=== PATIENT | male | born 1955 | race African-American/Black ===

== ENCOUNTER 2018-01-28 06:44 | Emergency (ER) | payer MEDICAID ==
[~2018-01-28] VITALS: Ht 190.5 cm; Wt 75.0 kg
[2018-01-28] MEDS ORDERED: MORPHINE SULFATE 4 MG/ML CPJ (NOT FOR IM USE) IV STA (07:20)
[2018-01-28] MEDS ORDERED: SODIUM CHLORIDE 0.9% 1,000 ML IV ONE (07:20)
[2018-01-28] MEDS ORDERED: ONDANSETRON HCL 4MG/2ML VIAL IV STA (07:20)
[2018-01-28 07:43] LABS: BASOPHILS % 0.5 % (0.0-2.0); CHLORIDE 103 mEq/L (98-107); HEMATOCRIT. 38.2 % (42.0-52.0); HEMOGLOBIN. 12.8 g/dL (14.0-18.0); LYMPHOCYTES % 19.2 % (20.0-50.0); MEAN CORPUSCULAR HEMOGLOBIN 33.6 pg (28.0-32.0); MEAN CORPUSCULAR VOLUME 100.2 fL (80.0-94.0); MEAN PLATELET VOLUME 7.4 fl (7.4-10.4); MONOCYTES % 8.7 % (2.0-8.0); NEUTROPHILS % 70.6 % (40.0-76.0); PLATELET 154 x1000/uL (130-400); RED BLOOD CELL COUNT 3.81 mill/uL (4.7-6.1); RED CELL DISTRIBUTION WIDTH 14.1 % (11.6-14.6)
[2018-01-28 07:49] LABS: PARTIAL THROMBOPLASTIN TIME 26.1 sec (23.4-31.0)
[2018-01-28 09:56] VITALS: BP 153/77
== END 2018-01-28 10:19 | disposition home or self-care (01) ==
LOC: ER 06:44
DX: S70.01XA Contusion of right hip, initial encounter (principal); I10 Essential (primary) hypertension; W19.XXXA Unspecified fall, initial encounter; Y93.89 Activity, other specified; Y92.89 Other specified places as the place of occurrence of the external cause; Y99.8 Other external cause status
CPT/HCPCS: 36415; 71045; 72192; 73502; 80048; 85025; 85610; 85730; 96374; 96375; 99285; J2270; J2405; J7030; Z7610; 96361

== ENCOUNTER 2019-05-19 17:31 | Emergency (ER) | payer MEDICAID ==
[~2019-05-19] VITALS: Ht 188 cm; Wt 77.0 kg
[2019-05-19] MEDS ORDERED: BACITRACIN ZINC OINT UDPKT TOP ONE (20:00)
[2019-05-19] MEDS ORDERED: TETANUS, DIPHTHERIA, PERTUSSIS VAC/PF 0.5ML (>7YR OLD) IM ONE (20:00)
[2019-05-19] MEDS ORDERED: LIDOCAINE HCL/PF 1% 10 MG/ML 5ML VIAL IJ ONE (20:00)
[2019-05-19] MEDS ORDERED: BACITRACIN 15GM TUBE TOP SCH (21:15)
[2019-05-19 21:26] VITALS: BP 110/67
== END 2019-05-19 21:27 | disposition home or self-care (01) ==
LOC: ER 17:31
DX: S01.81XA Laceration without foreign body of other part of head, initial encounter (principal); W01.0XXA Fall on same level from slipping, tripping and stumbling without subsequent striking against object, initial encounter; Y93.89 Activity, other specified; Y92.9 Unspecified place or not applicable
CPT/HCPCS: 12011; 99283

== ENCOUNTER 2019-06-04 12:36 | Emergency (ER) | payer MEDICAID ==
[~2019-06-04] VITALS: Ht 175.3 cm; Wt 71.0 kg
[2019-06-04] MEDS ORDERED: HYDROCODONE/ACETAMINOPHEN 5/325MG TABLET PO ONE (15:45)
[2019-06-04 16:07] VITALS: BP 136/80
== END 2019-06-04 17:46 | disposition home or self-care (01) ==
LOC: ER 12:36
DX: G89.29 Other chronic pain (principal); M54.5 Low back pain; I10 Essential (primary) hypertension
CPT/HCPCS: 99284

== ENCOUNTER 2019-07-29 07:10 | Emergency (ER) | payer MEDICAID ==
[~2019-07-29] VITALS: Ht 175.3 cm; Wt 68.0 kg
[2019-07-29] MEDS ORDERED: KETOROLAC 60MG/2ML VIAL IM ONE (08:30)
[2019-07-29] MEDS ORDERED: HYDROCODONE/ACETAMINOPHEN 5/325MG TABLET PO ONE (09:45)
[2019-07-29 14:20] VITALS: BP 158/73
== END 2019-07-29 14:24 | disposition home or self-care (01) ==
LOC: ER 07:25
DX: S22.41XA Multiple fractures of ribs, right side, initial encounter for closed fracture (principal); W01.0XXA Fall on same level from slipping, tripping and stumbling without subsequent striking against object, initial encounter; Y92.89 Other specified places as the place of occurrence of the external cause; Y99.8 Other external cause status; I10 Essential (primary) hypertension; M25.512 Pain in left shoulder; Y93.01 Activity, walking, marching and hiking
CPT/HCPCS: 71100; 73030; 96372; 99283; J1885

== ENCOUNTER 2019-09-20 09:56 | Emergency (ER) | payer MEDICAID ==
[~2019-09-20] VITALS: Ht 177.8 cm; Wt 85.0 kg
[2019-09-20] MEDS ORDERED: MORPHINE SULFATE 4 MG/ML CPJ (NOT FOR IM USE) IV STA (21:26)
[2019-09-20] MEDS ORDERED: SODIUM CHLORIDE 0.9% 1,000 ML IV ONE (21:26)
[2019-09-20 21:41] LABS: BASOPHILS % 0.6 % (0.0-2.0); EOSINOPHILS % 0.9 % (0.0-5.0); HEMATOCRIT. 33.7 % (42.0-52.0); HEMOGLOBIN. 11.4 g/dL (14.0-18.0); LYMPHOCYTES % 12.2 % (20.0-50.0); MEAN CORPUSCULAR HEMOGLOBIN 33.9 pg (28.0-32.0); MEAN CORPUSCULAR VOLUME 100.6 fL (80.0-94.0); MEAN PLATELET VOLUME 8.1 fl (7.4-10.4); NEUTROPHILS % 80.3 % (40.0-76.0); PLATELET 220 x1000/uL (130-400); RED BLOOD CELL COUNT 3.35 mill/uL (4.7-6.1); RED CELL DISTRIBUTION WIDTH 16.3 % (11.6-14.6)
[2019-09-20 21:43] LABS: CHLORIDE 105 mEq/L (98-107)
[2019-09-20] MEDS ORDERED: DEXTROSE 50% WATER 50ML SYRINGE IV ONE (23:45)
[2019-09-21] MEDS ORDERED: MORPHINE SULFATE 4 MG/ML CPJ (NOT FOR IM USE) IV ONE (02:15)
[2019-09-21 03:00] VITALS: BP 146/70
== END 2019-09-21 04:00 | disposition short-term general hospital (02) ==
LOC: ER 09:56 → CANBEDREQ 09-21 07:15
DX: S72.001A Fracture of unspecified part of neck of right femur, initial encounter for closed fracture (principal); I10 Essential (primary) hypertension; W18.30XA Fall on same level, unspecified, initial encounter; Y93.01 Activity, walking, marching and hiking; Y92.488 Other paved roadways as the place of occurrence of the external cause; Y99.8 Other external cause status
CPT/HCPCS: 36415; 71045; 73502; 80053; 82962; 83880; 84484; 85025; 93005; 96374; 96375; 99285; J2270; J7030

== ENCOUNTER 2021-07-31 16:08 | Emergency (ER) | payer MEDICAID ==
[~2021-07-31] VITALS: Ht 177.8 cm; Wt 75.0 kg
[2021-07-31] MEDS ORDERED: SODIUM CHLORIDE 0.9% 500 ML IV ONE (17:15)
[2021-07-31 19:19] LABS: EOSINOPHILS % 4.8 % (0.0-5.0); HEMATOCRIT. 38.5 % (42.0-52.0); HEMOGLOBIN. 12.6 g/dL (14.0-18.0); LYMPHOCYTES % 26.5 % (20.0-50.0); MEAN CORPUSCULAR HEMOGLOBIN 34.1 pg (28.0-32.0); MEAN CORPUSCULAR VOLUME 104.1 fL (80.0-94.0); MEAN PLATELET VOLUME 7.6 fl (7.4-10.4); MONOCYTES % 7.9 % (2.0-8.0); NEUTROPHILS % 59.8 % (40.0-76.0); PLATELET 192 x1000/uL (130-400); RED CELL DISTRIBUTION WIDTH 17.6 % (11.6-14.6)
[2021-07-31 19:24] LABS: CHLORIDE 107 mEq/L (98-107)
[2021-07-31 19:29] LABS: ETHANOL BLOOD 243 mg/dL
[2021-07-31] MEDS ORDERED: ACETAMINOPHEN 325MG TABLET PO ONE (19:30)
[2021-07-31 20:33] LABS: CLARITY URINE CLEAR (CLEAR); COLOR URINE YELLOW (YELLOW); KETONES URINE NEGATIVE (NEGATIVE); LEUKOCYTE ESTERASE URINE NEGATIVE (NEGATIVE); NITRITE URINE NEGATIVE (NEGATIVE); OCCULT BLOOD URINE 1+ (NEGATIVE); PROTEIN URINE NEGATIVE (NEGATIVE); SPECIFIC GRAVITY URINE 1.013 (1.005-1.030); UROBILINOGEN URINE 0.2 E.U./dL (0.2-1.0)
[2021-07-31 20:42] LABS: *AMPHETAMINES SCREEN URINE NEGATIVE (NEGATIVE); *BARBITURATES SCREEN URINE NEGATIVE (NEGATIVE)
[2021-07-31 20:43] LABS: *BENZODIAZEPINES SCREEN URINE NEGATIVE (NEGATIVE); *COCAINE SCREEN URINE NEGATIVE (NEGATIVE); METHADONE URINE SCREEN NEGATIVE (NEGATIVE); OPIATES URINE SCREEN NEGATIVE (NEGATIVE); PHENCYCLIDINE URINE SCREEN NEGATIVE (NEGATIVE)
[2021-07-31 20:44] LABS: CANNABINOID URINE SCREEN PRESUMTIVE POSITIVE (NEGATIVE)
[2021-08-01 03:05] VITALS: BP 110/60
== END 2021-08-01 03:10 | disposition home or self-care (01) ==
LOC: ER 16:08
DX: S00.81XA Abrasion of other part of head, initial encounter (principal); F10.129 Alcohol abuse with intoxication, unspecified; R41.82 Altered mental status, unspecified; I49.9 Cardiac arrhythmia, unspecified; F03.90 Unspecified dementia, unspecified severity, without behavioral disturbance, psychotic disturbance, mood disturbance, and anxiety; F41.9 Anxiety disorder, unspecified; M19.90 Unspecified osteoarthritis, unspecified site; I12.9 Hypertensive chronic kidney disease with stage 1 through stage 4 chronic kidney disease, or unspecified chronic kidney disease; N18.9 Chronic kidney disease, unspecified; Y90.8 Blood alcohol level of 240 mg/100 ml or more; V43.52XA Car driver injured in collision with other type car in traffic accident, initial encounter; Y92.488 Other paved roadways as the place of occurrence of the external cause; Y93.89 Activity, other specified; Z87.440 Personal history of urinary (tract) infections; Z98.890 Other specified postprocedural states
CPT/HCPCS: 36415; 70450; 70486; 71045; 72040; 72070; 72100; 72170; 72192; 80053; 80305; 80320; 81003; 83880; 84484; 85025; 93005; 99285; J7040; G0480

== ENCOUNTER 2022-03-21 11:46 | Inpatient (IN) | payer MEDICARE, MEDICAID ==
[~2022-03-21] VITALS: Ht 193 cm; Wt 66.2 kg
[2022-03-21] MEDS ORDERED: SODIUM CHLORIDE 0.9% 1,000 ML IV ONE ×2 (12:15→13:15)
[2022-03-21 12:41] LABS: HEMATOCRIT. 45.9 % (42.0-52.0); HEMOGLOBIN. 14.9 g/dL (14.0-18.0); MEAN CORPUSCULAR HEMOGLOBIN 33.5 pg (28.0-32.0); MEAN PLATELET VOLUME 9.2 fl (7.4-10.4); PLATELET 255 x1000/uL (130-400); RED BLOOD CELL COUNT 4.46 mill/uL (4.7-6.1); RED CELL DISTRIBUTION WIDTH 17.7 % (11.6-14.6)
[2022-03-21 13:07] LABS: ETHANOL BLOOD < 10 mg/dL
[2022-03-21] MEDS ORDERED: PIPERACILLIN/TAZOBACTAM 3.375GM/50ML PREMIX IV STA (13:11)
[2022-03-21] MEDS ORDERED: VANCOMYCIN 1GM PMX (XELLIA) 200 ML IV STA (13:11)
[2022-03-21] MEDS ORDERED: VANCOMYCIN 1G PREMIX 200 ML IV NR (13:30)
[2022-03-21] MEDS ORDERED: ASPIRIN 325MG TABLET PO ONE (13:30)
[2022-03-21] MEDS ORDERED: PIPERACILLIN/TAZ 3.375G PREMIX 50 ML IV NR (13:30)
[2022-03-21 14:01] LABS: PLATELET ESTIMATE NORMAL
[2022-03-21 14:20] LABS: CHLORIDE 100 mEq/L (98-107)
[2022-03-21 14:22] LABS: INR 1.1; PROTHROMBIN TIME 11.8 sec (9.6-11.0)
[2022-03-21] MEDS ORDERED: HEPARIN 5000 UNITS/ML VIAL IV ONE (15:00)
[2022-03-21] MEDS ORDERED: HEPARIN 25,000 UNITS PREMIX 250 ML IV ONE (15:00)
[2022-03-21] MEDS ORDERED: ENOXAPARIN 60MG/0.6ML SYR SUBCUT SCH (16:00)
[2022-03-21 20:00] VITALS: BP 98/76
[2022-03-21 22:00] VITALS: BP 96/56
[2022-03-21 22:42] LABS: BG BASE EXCESS -9.3 mmol/L (-2.0-2.0); BG FRACTION INSPIRED OXYGEN 21; BG HCO3 ACT 12.6 mmol/L (22.0-26.0); BG METHEMOGLOBIN 0.4 % (0.0-1.5); BG OXYHEMOGLOBIN 96.6 % (94.0-97.0); BG PCO2 19.7 mmHg (35.0-45.0); BG PH 7.423 (7.350-7.450); BG PO2 97.4 mmHg (75.0-100.0); BG TOTAL HEMOGLOBIN 14.2 g/dL (12.0-18.0); BG VENT MODE ROOM AIR
[2022-03-21 23:00] VITALS: BP_SYST 88; BP_SYST 92; BP_DIAS 53; BP_DIAS 56
[2022-03-21] MEDS ORDERED: MORPHINE SULFATE 2 MG/ML CPJ (NOT FOR IM USE) IV PRN (23:30)
[2022-03-21] MEDS ORDERED: ACETAMINOPHEN 325MG TABLET PO PRN (23:30)
[2022-03-21 23:50] VITALS: BP 91/55
[2022-03-21] MEDS ORDERED: SODIUM BICARBONATE 8.4% 1 MEQ/ML 50ML SYR IV NR (23:57)
[2022-03-22] VITALS (14 sets, daily range): BP systolic 91–123; BP diastolic 51–86
[2022-03-22] MEDS: DEXT 5%/0.9% NACL 1,000 ML IV SCH ×3 (02:52→21:55)
[2022-03-22 07:04] LABS: HEMOGLOBIN. 13.6 g/dL (14.0-18.0); MEAN CORPUSCULAR HEMOGLOBIN 33.9 pg (28.0-32.0); MEAN CORPUSCULAR VOLUME 102.4 fL (80.0-94.0); MEAN PLATELET VOLUME 9.4 fl (7.4-10.4); PLATELET 210 x1000/uL (130-400); RED BLOOD CELL COUNT 4.01 mill/uL (4.7-6.1); RED CELL DISTRIBUTION WIDTH 17.8 % (11.6-14.6)
[2022-03-22] MEDS ORDERED: VANCOMYCIN 500MG PREMIX 100 ML IV SCH (09:00)
[2022-03-22] MEDS: CITRIC ACID/SODIUM CITRATE SOLN 15ML UDC PO SCH ×3 (09:44→17:00)
[2022-03-22] MEDS: PIPERACILLIN/TAZOBACTAM 3.375 G in DEXTROSE 5% WATER 50 ML IV SCH ×2 (09:44→21:55)
[2022-03-22] MEDS ORDERED: NALOXONE HCL 0.4MG/ML VIAL IV PRN (10:00)
[2022-03-22 13:10] LABS: CREATINE KINASE 10963 IU/L (39-308)
[2022-03-22 14:44] LABS: NUCLEATED RED BLOOD CELLS 1 /100 WBC; PLATELET ESTIMATE NORMAL
[2022-03-22 15:57] LABS: CLARITY URINE TURBID (CLEAR); COLOR URINE DARK YELLOW (YELLOW); KETONES URINE TRACE (NEGATIVE); LEUKOCYTE ESTERASE URINE 2+ (NEGATIVE); NITRITE URINE POSITIVE (NEGATIVE); OCCULT BLOOD URINE 3+ (NEGATIVE); PROTEIN URINE 3+ (NEGATIVE); SPECIFIC GRAVITY URINE 1.024 (1.005-1.030)
[2022-03-22] MEDS: ENOXAPARIN 30MG/0.3ML SYR SUBCUT SCH (16:00)
[2022-03-22 16:31] LABS: *AMPHETAMINES SCREEN URINE NEGATIVE (NEGATIVE); *BARBITURATES SCREEN URINE NEGATIVE (NEGATIVE); *BENZODIAZEPINES SCREEN URINE NEGATIVE (NEGATIVE); *COCAINE SCREEN URINE NEGATIVE (NEGATIVE); CANNABINOID URINE SCREEN NEGATIVE (NEGATIVE); METHADONE URINE SCREEN NEGATIVE (NEGATIVE); OPIATES URINE SCREEN PRESUMTIVE POSITIVE (NEGATIVE); PHENCYCLIDINE URINE SCREEN NEGATIVE (NEGATIVE)
[2022-03-22 17:02] LABS: HEPATITIS B SURFACE ANTIGEN NEGATIVE
[2022-03-23] VITALS (20 sets, daily range): BP systolic 81–110; BP diastolic 25–61
[2022-03-23] MEDS: DEXT 5%/0.9% NACL 1,000 ML IV SCH ×2 (06:00→11:43)
[2022-03-23 06:40] LABS: CHLORIDE 106 mEq/L (98-107)
[2022-03-23] MEDS: LEVOTHYROXINE SODIUM 25MCG TABLET PO SCH (06:46)
[2022-03-23 06:55] LABS: PHOSPHORUS 2.8 mg/dL (2.5-4.9)
[2022-03-23 07:51] LABS: HEMATOCRIT. 35.3 % (42.0-52.0); HEMOGLOBIN. 11.4 g/dL (14.0-18.0); MEAN CORPUSCULAR HEMOGLOBIN 33.5 pg (28.0-32.0); MEAN CORPUSCULAR VOLUME 103.8 fL (80.0-94.0); MEAN PLATELET VOLUME 9.1 fl (7.4-10.4); PLATELET 172 x1000/uL (130-400); RED CELL DISTRIBUTION WIDTH 17.8 % (11.6-14.6)
[2022-03-23] MEDS: CITRIC ACID/SODIUM CITRATE SOLN 15ML UDC PO SCH ×4 (09:00→16:51)
[2022-03-23] MEDS: PIPERACILLIN/TAZOBACTAM 3.375 G in DEXTROSE 5% WATER 50 ML IV SCH ×2 (09:29→21:44)
[2022-03-23] MEDS ORDERED: MIDODRINE HCL 5MG TABLET PO NR (09:30)
[2022-03-23] MEDS ORDERED: VANCOMYCIN 750MG PREMIX 150 ML IV NR (11:00)
[2022-03-23] MEDS: MIDODRINE HCL 5MG TABLET PO SCH ×2 (12:59→16:59)
[2022-03-23 13:00] LABS: PLATELET ESTIMATE NORMAL
[2022-03-23] MEDS: ENOXAPARIN 30MG/0.3ML SYR SUBCUT SCH (16:59)
[2022-03-24] VITALS (19 sets, daily range): BP systolic 86–157; BP diastolic 47–121
[2022-03-24] MEDS: DEXT 5%/0.9% NACL 1,000 ML IV SCH ×3 (02:00→21:44)
[2022-03-24 05:41] LABS: HEMOGLOBIN. 10.7 g/dL (14.0-18.0); MEAN CORPUSCULAR HEMOGLOBIN 33.7 pg (28.0-32.0); MEAN CORPUSCULAR VOLUME 101.3 fL (80.0-94.0); MEAN PLATELET VOLUME 8.9 fl (7.4-10.4); PLATELET 156 x1000/uL (130-400); RED BLOOD CELL COUNT 3.16 mill/uL (4.7-6.1); RED CELL DISTRIBUTION WIDTH 17.7 % (11.6-14.6)
[2022-03-24 06:48] LABS: PLATELET ESTIMATE NORMAL
[2022-03-24] MEDS: LEVOTHYROXINE SODIUM 25MCG TABLET PO SCH (06:59)
[2022-03-24] MEDS ORDERED: POTASSIUM CHLORIDE 20MEQ TABLET SR PO NR (08:45)
[2022-03-24] MEDS: PIPERACILLIN/TAZOBACTAM 3.375 G in DEXTROSE 5% WATER 50 ML IV SCH ×2 (10:05→21:44)
[2022-03-24] MEDS: MIDODRINE HCL 5MG TABLET PO SCH ×3 (10:06→18:23)
[2022-03-24] MEDS: FOLIC ACID 1MG TABLET PO SCH (14:00)
[2022-03-24] MEDS: THIAMINE HCL 100MG TABLET PO SCH (14:00)
[2022-03-24] MEDS: ENOXAPARIN 30MG/0.3ML SYR SUBCUT SCH (16:00)
[2022-03-24] MEDS ORDERED: VANCOMYCIN 750MG PREMIX 150 ML IV NR (21:00)
[2022-03-25] VITALS (23 sets, daily range): BP systolic 85–117; BP diastolic 47–69
[2022-03-25] MEDS: LEVOTHYROXINE SODIUM 25MCG TABLET PO SCH (07:09)
[2022-03-25 07:14] LABS: HEMATOCRIT. 31.2 % (42.0-52.0); HEMOGLOBIN. 10.3 g/dL (14.0-18.0); MEAN CORPUSCULAR HEMOGLOBIN 33.4 pg (28.0-32.0); MEAN CORPUSCULAR VOLUME 101.5 fL (80.0-94.0); MEAN PLATELET VOLUME 9.3 fl (7.4-10.4); PLATELET 165 x1000/uL (130-400); RED BLOOD CELL COUNT 3.08 mill/uL (4.7-6.1); RED CELL DISTRIBUTION WIDTH 17.1 % (11.6-14.6)
[2022-03-25 07:52] LABS: PHOSPHORUS 2.9 mg/dL (2.5-4.9)
[2022-03-25] MEDS: PIPERACILLIN/TAZOBACTAM 3.375 G in DEXTROSE 5% WATER 50 ML IV SCH ×2 (08:19→21:04)
[2022-03-25] MEDS: FOLIC ACID 1MG TABLET PO SCH (08:19)
[2022-03-25] MEDS: MIDODRINE HCL 5MG TABLET PO SCH ×3 (08:19→16:45)
[2022-03-25] MEDS: DEXT 5%/0.9% NACL 1,000 ML IV SCH (08:19)
[2022-03-25] MEDS: THIAMINE HCL 100MG TABLET PO SCH (08:19)
[2022-03-25] MEDS ORDERED: POTASSIUM CHLORIDE 20MEQ TABLET SR PO NR (10:00)
[2022-03-25] MEDS: HYDROCODONE/ACETAMINOPHEN 5/325MG TABLET PO PRN ×2 (12:07→21:03)
[2022-03-25 13:45] LABS: PLATELET ESTIMATE NORMAL
[2022-03-25 14:32] LABS: BG BASE EXCESS -6.3 mmol/L (-2.0-2.0); BG CARBOXYHEMOGLOBIN 0.3 % (0.5-1.5); BG DEOXYHEMOGLOBIN 1.6 % (0.0-5.0); BG FRACTION INSPIRED OXYGEN 26; BG HCO3 ACT 18.1 mmol/L (22.0-26.0); BG METHEMOGLOBIN 0.5 % (0.0-1.5); BG OXYGEN SATURATION 98.4 % (92.0-98.5); BG OXYHEMOGLOBIN 97.6 % (94.0-97.0); BG PO2 146.2 mmHg (75.0-100.0); BG SAMPLE SITE RIGHT BRACHIAL; BG TOTAL HEMOGLOBIN 11.2 g/dL (12.0-18.0); BG VENT MODE NASAL CANNULA
[2022-03-25] MEDS ORDERED: SODIUM BICARBONATE 100 MEQ in DEXT 5%/0.45% NACL 1000ML 1,000 ML IV SCH (16:00)
[2022-03-25] MEDS: ENOXAPARIN 30MG/0.3ML SYR SUBCUT SCH (16:45)
[2022-03-25 18:23] LABS: PHOSPHORUS 2.4 mg/dL (2.5-4.9)
[2022-03-26] VITALS (14 sets, daily range): BP systolic 82–125; BP diastolic 51–75
[2022-03-26 06:26] LABS: HEMATOCRIT. 31.8 % (42.0-52.0); HEMOGLOBIN. 10.8 g/dL (14.0-18.0); MEAN CORPUSCULAR HEMOGLOBIN 34.1 pg (28.0-32.0); MEAN CORPUSCULAR VOLUME 100.8 fL (80.0-94.0); PLATELET 196 x1000/uL (130-400); RED BLOOD CELL COUNT 3.15 mill/uL (4.7-6.1); RED CELL DISTRIBUTION WIDTH 17.5 % (11.6-14.6)
[2022-03-26] MEDS: LEVOTHYROXINE SODIUM 25MCG TABLET PO SCH (07:30)
[2022-03-26] MEDS ORDERED: ALBUMIN HUMAN 25GM/100ML (25%) IV ONE (07:45)
[2022-03-26] MEDS ORDERED: VANCOMYCIN 1G PREMIX 200 ML IV NR (08:00)
[2022-03-26] MEDS: MIDODRINE HCL 5MG TABLET PO SCH ×3 (09:00→17:21)
[2022-03-26] MEDS: THIAMINE HCL 100MG TABLET PO SCH (09:00)
[2022-03-26] MEDS: FOLIC ACID 1MG TABLET PO SCH (09:00)
[2022-03-26 09:11] LABS: BG BASE EXCESS -6.2 mmol/L (-2.0-2.0); BG CARBOXYHEMOGLOBIN 0.4 % (0.5-1.5); BG DEOXYHEMOGLOBIN 4.5 % (0.0-5.0); BG FRACTION INSPIRED OXYGEN 21; BG HCO3 ACT 18.7 mmol/L (22.0-26.0); BG METHEMOGLOBIN 0.9 % (0.0-1.5); BG OXYGEN SATURATION 95.4 % (92.0-98.5); BG OXYHEMOGLOBIN 94.2 % (94.0-97.0); BG PCO2 35.1 mmHg (35.0-45.0); BG PH 7.345 (7.350-7.450); BG PO2 85.2 mmHg (75.0-100.0); BG SAMPLE SITE RIGHT RADIAL; BG TOTAL HEMOGLOBIN 12.7 g/dL (12.0-18.0); BG VENT MODE ROOM AIR
[2022-03-26] MEDS: PIPERACILLIN/TAZOBACTAM 3.375 G in DEXTROSE 5% WATER 50 ML IV SCH ×2 (10:26→21:24)
[2022-03-26 10:43] LABS: PLATELET ESTIMATE NORMAL
[2022-03-26] MEDS: SODIUM BICARBONATE 100 MEQ in DEXT 5%/0.45% NACL 1000ML 1,000 ML IV SCH (17:21)
[2022-03-26] MEDS: ENOXAPARIN 30MG/0.3ML SYR SUBCUT SCH (17:21)
[2022-03-27] VITALS (10 sets, daily range): BP systolic 107–140; BP diastolic 57–80
[2022-03-27] MEDS: SODIUM BICARBONATE 100 MEQ in DEXT 5%/0.45% NACL 1000ML 1,000 ML IV SCH ×2 (03:45→15:55)
[2022-03-27] MEDS: FOLIC ACID 1MG TABLET PO SCH (09:06)
[2022-03-27] MEDS: LEVOTHYROXINE SODIUM 25MCG TABLET PO SCH (09:06)
[2022-03-27] MEDS: MIDODRINE HCL 5MG TABLET PO SCH ×3 (09:06→16:53)
[2022-03-27] MEDS: THIAMINE HCL 100MG TABLET PO SCH (09:06)
[2022-03-27] MEDS: LOPERAMIDE HCL 2MG CAPSULE PO PRN ×2 (10:16→15:31)
[2022-03-27] MEDS: PIPERACILLIN/TAZOBACTAM 3.375 G in DEXTROSE 5% WATER 50 ML IV SCH (10:41)
[2022-03-27 11:02] LABS: HEMATOCRIT. 31.3 % (42.0-52.0); HEMOGLOBIN. 10.2 g/dL (14.0-18.0); MEAN CORPUSCULAR HEMOGLOBIN 33.1 pg (28.0-32.0); MEAN CORPUSCULAR VOLUME 101.3 fL (80.0-94.0); MEAN PLATELET VOLUME 8.3 fl (7.4-10.4); PLATELET 270 x1000/uL (130-400); RED BLOOD CELL COUNT 3.09 mill/uL (4.7-6.1); RED CELL DISTRIBUTION WIDTH 17.5 % (11.6-14.6)
[2022-03-27] MEDS ORDERED: SILVER SULFADIAZINE 1% CREAM 25GM TOP SCH (12:00)
[2022-03-27 12:16] LABS: PLATELET ESTIMATE NORMAL
[2022-03-27] MEDS ORDERED: ENOXAPARIN 40MG/0.4ML SYR SUBCUT SCH (16:00)
== END 2022-03-27 17:21 | DRG 871 ==
LOC: ER 11:58 → 5EST 14:56 → EDBEDREQ 15:05 → EDBEDREQSVC 15:05 → 5EST 19:15 → ENRESERV 21:04
PROVIDERS: ADMIT Internal Medicine; ATTEND Internal Medicine
PROC: B54NZZA Ultrasonography of Left Upper Extremity Veins, Guidance (ICD-10-PCS; principal; 2022-03-22)
PROC: 05HY33Z Insertion of Infusion Device into Upper Vein, Percutaneous Approach (ICD-10-PCS; 2022-03-22)
DX: A40.9 Streptococcal sepsis, unspecified (principal); E43 Unspecified severe protein-calorie malnutrition; N17.0 Acute kidney failure with tubular necrosis; G82.50 Quadriplegia, unspecified; G93.41 Metabolic encephalopathy; I21.4 Non-ST elevation (NSTEMI) myocardial infarction; R65.21 Severe sepsis with septic shock; N39.0 Urinary tract infection, site not specified; E87.1 Hypo-osmolality and hyponatremia; M62.82 Rhabdomyolysis; M47.12 Other spondylosis with myelopathy, cervical region; Z68.1 Body mass index [BMI] 19.9 or less, adult; D64.9 Anemia, unspecified; E16.2 Hypoglycemia, unspecified; E87.6 Hypokalemia; F03.90 Unspecified dementia, unspecified severity, without behavioral disturbance, psychotic disturbance, mood disturbance, and anxiety; N18.9 Chronic kidney disease, unspecified; I12.9 Hypertensive chronic kidney disease with stage 1 through stage 4 chronic kidney disease, or unspecified chronic kidney disease; K76.0 Fatty (change of) liver, not elsewhere classified; F10.20 Alcohol dependence, uncomplicated; F41.9 Anxiety disorder, unspecified; R26.89 Other abnormalities of gait and mobility; R53.81 Other malaise; K82.8 Other specified diseases of gallbladder; M48.061 Spinal stenosis, lumbar region without neurogenic claudication; S91.312A Laceration without foreign body, left foot, initial encounter; L89.150 Pressure ulcer of sacral region, unstageable; L89.126 Pressure-induced deep tissue damage of left upper back; S70.212A Abrasion, left hip, initial encounter; S70.312A Abrasion, left thigh, initial encounter; S80.212A Abrasion, left knee, initial encounter; S50.311A Abrasion of right elbow, initial encounter; G90.8 Other disorders of autonomic nervous system; B95.2 Enterococcus as the cause of diseases classified elsewhere; S43.002A Unspecified subluxation of left shoulder joint, initial encounter; S90.32XA Contusion of left foot, initial encounter; W01.0XXA Fall on same level from slipping, tripping and stumbling without subsequent striking against object, initial encounter; Z20.822 Contact with and (suspected) exposure to COVID-19; N20.0 Calculus of kidney; N40.0 Benign prostatic hyperplasia without lower urinary tract symptoms; Z87.891 Personal history of nicotine dependence; Y93.89 Activity, other specified; Y92.89 Other specified places as the place of occurrence of the external cause; Y99.8 Other external cause status
CPT/HCPCS: 36415; 36573; 36600; 71045; 72141; 72148; 72170; 73030; 74176; 80048; 80053; 80076; 80202; 80305; 80307; 80320; 80329; 81003; 82040; 82375; 82550; 82570; 82805; 83605; 83735; 83880; 84100; 84134; 84145; 84153; 84156; 84443; 84484; 84550; 85025; 86705; 86709; 86803; 86850; 86900; 87015; 87045; 87077; 87186; 87340; 87426; 87427; 87449; 87493; 92610; 93306; 93923; 93970; 97162; 97166; 97530; 97535; 99291; C1725; C9803; J1644; J1650; J2270; J2543; J3370; J3490; J7030; J7042; J7060; P9047; A4315; G0103; G0480

== ENCOUNTER 2022-03-27 18:05 | Inpatient (IN) | payer MEDICARE, MEDICAID ==
[~2022-03-27] VITALS: Ht 193 cm; Wt 62.1 kg
[2022-03-27] MEDS ORDERED: LOPERAMIDE HCL 2MG CAPSULE PO PRN (18:30)
[2022-03-27 19:30] VITALS: BP 151/72
[2022-03-27 20:00] VITALS: BP 151/72
[2022-03-27] MEDS ORDERED: PIPERACILLIN/TAZOBACTAM 3.375GM/50ML PREMIX IV SCH (21:00)
[2022-03-27] MEDS: PIPERACILLIN/TAZOBACTAM 3.375 G in DEXTROSE 5% WATER 50 ML IV SCH (22:18)
[2022-03-27] MEDS: SODIUM BICARBONATE 100 MEQ in SODIUM CHLORIDE 0.45% 1,000 ML IV SCH (22:18)
[2022-03-27] MEDS: SILVER SULFADIAZINE 1% CREAM 25GM TOP SCH (22:31)
[2022-03-28] MEDS: SODIUM BICARBONATE 100 MEQ in SODIUM CHLORIDE 0.45% 1,000 ML IV SCH (05:30)
[2022-03-28] MEDS: LEVOTHYROXINE SODIUM 25MCG TABLET PO SCH (06:42)
[2022-03-28 06:50] LABS: CHLORIDE 105 mEq/L (98-107)
[2022-03-28 06:53] LABS: HEMATOCRIT. 28.1 % (42.0-52.0); HEMOGLOBIN. 9.6 g/dL (14.0-18.0); MEAN CORPUSCULAR HEMOGLOBIN 34.1 pg (28.0-32.0); MEAN CORPUSCULAR VOLUME 99.8 fL (80.0-94.0); MEAN PLATELET VOLUME 8.1 fl (7.4-10.4); PLATELET 265 x1000/uL (130-400); RED BLOOD CELL COUNT 2.82 mill/uL (4.7-6.1); RED CELL DISTRIBUTION WIDTH 17.1 % (11.6-14.6)
[2022-03-28 08:00] VITALS: BP 158/65
[2022-03-28] MEDS ORDERED: POTASSIUM CHLORIDE 20MEQ TABLET SR PO SCH (08:00)
[2022-03-28] MEDS: FOLIC ACID 1MG TABLET PO SCH (08:18)
[2022-03-28] MEDS: PIPERACILLIN/TAZOBACTAM 3.375 G in DEXTROSE 5% WATER 50 ML IV SCH ×2 (08:18→22:05)
[2022-03-28] MEDS: THIAMINE HCL 100MG TABLET PO SCH (08:18)
[2022-03-28] MEDS: SILVER SULFADIAZINE 1% CREAM 25GM TOP SCH ×2 (08:19→22:05)
[2022-03-28] MEDS: MIDODRINE HCL 5MG TABLET PO SCH ×3 (08:19→17:00)
[2022-03-28 08:34] LABS: PHOSPHORUS 2.2 mg/dL (2.5-4.9)
[2022-03-28] MEDS ORDERED: MAGNESIUM 1 G PREMIX 100 ML IV NR (13:00)
[2022-03-28] MEDS ORDERED: POTASSIUM PHOS,M-BASIC-D-BASIC 10 MMOL in DEXT 5% WATER 246.6667 ML IV NR (14:00)
[2022-03-28 14:21] LABS: PLATELET ESTIMATE NORMAL
[2022-03-28] MEDS: ENOXAPARIN 40MG/0.4ML SYR SUBCUT SCH (14:24)
[2022-03-28 20:00] VITALS: BP 180/66
[2022-03-28] MEDS: ACETAMINOPHEN 325MG TABLET PO PRN (22:06)
[2022-03-29 05:46] LABS: BASOPHILS % 0.3 % (0.0-2.0); EOSINOPHILS % 0.6 % (0.0-5.0); HEMATOCRIT. 28.7 % (42.0-52.0); HEMOGLOBIN. 9.5 g/dL (14.0-18.0); LYMPHOCYTES % 7.8 % (20.0-50.0); MEAN CORPUSCULAR HEMOGLOBIN 33.2 pg (28.0-32.0); MEAN CORPUSCULAR VOLUME 99.8 fL (80.0-94.0); MEAN PLATELET VOLUME 7.6 fl (7.4-10.4); MONOCYTES % 5.9 % (2.0-8.0); NEUTROPHILS % 85.4 % (40.0-76.0); PLATELET 280 x1000/uL (130-400); RED BLOOD CELL COUNT 2.87 mill/uL (4.7-6.1); RED CELL DISTRIBUTION WIDTH 17.2 % (11.6-14.6)
[2022-03-29] MEDS: LEVOTHYROXINE SODIUM 25MCG TABLET PO SCH (06:28)
[2022-03-29 06:32] LABS: FOLIC ACID (FOLATE) SERUM 11.5 ng/mL (>5.38)
[2022-03-29 06:47] LABS: CHLORIDE 105 mEq/L (98-107)
[2022-03-29 07:02] LABS: CREATINE KINASE 544 IU/L (39-308); TOTAL IRON BINDING CAPACITY 402 ug/dL (250-450)
[2022-03-29 08:00] VITALS: BP 127/68
[2022-03-29] MEDS ORDERED: POTASSIUM CHLORIDE 20MEQ TABLET SR PO NR (09:00)
[2022-03-29] MEDS: THIAMINE HCL 100MG TABLET PO SCH (09:57)
[2022-03-29] MEDS: FOLIC ACID 1MG TABLET PO SCH (09:57)
[2022-03-29] MEDS: PIPERACILLIN/TAZOBACTAM 3.375 G in DEXTROSE 5% WATER 50 ML IV SCH ×2 (09:57→20:21)
[2022-03-29] MEDS: SILVER SULFADIAZINE 1% CREAM 25GM TOP SCH ×2 (09:58→21:01)
[2022-03-29] MEDS: MIDODRINE HCL 5MG TABLET PO SCH ×3 (09:58→16:10)
[2022-03-29] MEDS ORDERED: MAGNESIUM 2 G PREMIX 50 ML IV NR (10:00)
[2022-03-29 14:26] LABS: PROSTRATE SPECIFIC AG TOTAL 5.01 ng/mL (0.0-4.0)
[2022-03-29] MEDS: ENOXAPARIN 40MG/0.4ML SYR SUBCUT SCH (16:01)
[2022-03-29 20:19] VITALS: BP 109/56
[2022-03-30 06:08] LABS: CHLORIDE 103 mEq/L (98-107)
[2022-03-30 06:12] LABS: PHOSPHORUS 2.9 mg/dL (2.5-4.9)
[2022-03-30] MEDS: LEVOTHYROXINE SODIUM 25MCG TABLET PO SCH (06:34)
[2022-03-30 06:47] LABS: HEMATOCRIT. 27.1 % (42.0-52.0); HEMOGLOBIN. 9.2 g/dL (14.0-18.0); MEAN CORPUSCULAR VOLUME 100.4 fL (80.0-94.0); MEAN PLATELET VOLUME 7.8 fl (7.4-10.4); PLATELET 286 x1000/uL (130-400)
[2022-03-30 08:00] VITALS: BP 135/71
[2022-03-30] MEDS ORDERED: POTASSIUM CHLORIDE 20MEQ TABLET SR PO NR (08:00)
[2022-03-30] MEDS: MAGNESIUM OXIDE 400MG TABLET PO SCH (09:00)
[2022-03-30] MEDS: THIAMINE HCL 100MG TABLET PO SCH (09:00)
[2022-03-30] MEDS: FOLIC ACID 1MG TABLET PO SCH (09:00)
[2022-03-30] MEDS: SILVER SULFADIAZINE 1% CREAM 25GM TOP SCH ×2 (09:00→21:00)
[2022-03-30] MEDS: PIPERACILLIN/TAZOBACTAM 3.375 G in DEXTROSE 5% WATER 50 ML IV SCH (10:16)
[2022-03-30] MEDS: MIDODRINE HCL 5MG TABLET PO SCH ×3 (10:17→17:03)
[2022-03-30 14:31] LABS: PLATELET ESTIMATE NORMAL
[2022-03-30] MEDS: ENOXAPARIN 40MG/0.4ML SYR SUBCUT SCH (15:36)
[2022-03-30 20:00] VITALS: BP 143/76
[2022-03-30 20:30] VITALS: BP 143/76
[2022-03-31] MEDS: ACETAMINOPHEN 325MG TABLET PO PRN ×3 (03:26→18:12)
[2022-03-31] MEDS: LEVOTHYROXINE SODIUM 25MCG TABLET PO SCH (06:08)
[2022-03-31 06:50] LABS: BASOPHILS % 0.5 % (0.0-2.0); EOSINOPHILS % 0.9 % (0.0-5.0); HEMATOCRIT. 26.2 % (42.0-52.0); HEMOGLOBIN. 8.9 g/dL (14.0-18.0); LYMPHOCYTES % 9.2 % (20.0-50.0); MEAN CORPUSCULAR VOLUME 100.4 fL (80.0-94.0); MEAN PLATELET VOLUME 7.9 fl (7.4-10.4); NEUTROPHILS % 82.4 % (40.0-76.0); PLATELET 287 x1000/uL (130-400); RED BLOOD CELL COUNT 2.61 mill/uL (4.7-6.1)
[2022-03-31 07:25] LABS: CHLORIDE 104 mEq/L (98-107)
[2022-03-31] MEDS ORDERED: POTASSIUM CHLORIDE 20MEQ/PACKET PO SCH (07:45)
[2022-03-31 08:00] VITALS: BP 123/67
[2022-03-31] MEDS: THIAMINE HCL 100MG TABLET PO SCH (08:48)
[2022-03-31] MEDS: MAGNESIUM OXIDE 400MG TABLET PO SCH (08:48)
[2022-03-31] MEDS: FOLIC ACID 1MG TABLET PO SCH (08:48)
[2022-03-31] MEDS: MIDODRINE HCL 5MG TABLET PO SCH ×3 (08:49→17:55)
[2022-03-31] MEDS: ENOXAPARIN 40MG/0.4ML SYR SUBCUT SCH (08:50)
[2022-03-31] MEDS: SILVER SULFADIAZINE 1% CREAM 25GM TOP SCH ×2 (08:51→20:40)
[2022-03-31 20:00] VITALS: BP 119/63
[2022-04-01] MEDS: ACETAMINOPHEN 325MG TABLET PO PRN ×3 (03:47→20:23)
[2022-04-01 06:29] LABS: CHLORIDE 104 mEq/L (98-107)
[2022-04-01 06:33] LABS: PHOSPHORUS 3.7 mg/dL (2.5-4.9)
[2022-04-01 06:49] LABS: BASOPHILS % 0.9 % (0.0-2.0); EOSINOPHILS % 1.2 % (0.0-5.0); HEMATOCRIT. 25.6 % (42.0-52.0); HEMOGLOBIN. 8.7 g/dL (14.0-18.0); MEAN CORPUSCULAR HEMOGLOBIN 33.8 pg (28.0-32.0); MEAN CORPUSCULAR VOLUME 99.6 fL (80.0-94.0); MEAN PLATELET VOLUME 8.2 fl (7.4-10.4); MONOCYTES % 7.1 % (2.0-8.0); NEUTROPHILS % 79.8 % (40.0-76.0); PLATELET 307 x1000/uL (130-400); RED BLOOD CELL COUNT 2.57 mill/uL (4.7-6.1); RED CELL DISTRIBUTION WIDTH 16.6 % (11.6-14.6)
[2022-04-01] MEDS: LEVOTHYROXINE SODIUM 25MCG TABLET PO SCH (07:21)
[2022-04-01 08:00] VITALS: BP 99/57
[2022-04-01] MEDS: THIAMINE HCL 100MG TABLET PO SCH (08:51)
[2022-04-01] MEDS: MAGNESIUM OXIDE 400MG TABLET PO SCH ×2 (08:51→19:15)
[2022-04-01] MEDS: FOLIC ACID 1MG TABLET PO SCH (08:51)
[2022-04-01] MEDS: SILVER SULFADIAZINE 1% CREAM 25GM TOP SCH ×2 (08:51→20:23)
[2022-04-01] MEDS: MIDODRINE HCL 5MG TABLET PO SCH ×3 (08:51→19:15)
[2022-04-01] MEDS ORDERED: POTASSIUM CHLORIDE 20MEQ TABLET SR PO SCH (10:45)
[2022-04-01] MEDS: ENOXAPARIN 40MG/0.4ML SYR SUBCUT SCH (16:55)
[2022-04-01 20:00] VITALS: BP 107/58
[2022-04-02 04:07] LABS: 25-HYDROXY VITAMIN D3 2.5 ng/mL (.)
[2022-04-02] MEDS: LEVOTHYROXINE SODIUM 25MCG TABLET PO SCH (06:26)
[2022-04-02 08:00] VITALS: BP 122/66
[2022-04-02] MEDS: MAGNESIUM OXIDE 400MG TABLET PO SCH ×2 (09:08→17:37)
[2022-04-02] MEDS: FOLIC ACID 1MG TABLET PO SCH (09:08)
[2022-04-02] MEDS: MIDODRINE HCL 5MG TABLET PO SCH ×3 (09:08→17:37)
[2022-04-02] MEDS: THIAMINE HCL 100MG TABLET PO SCH (09:08)
[2022-04-02] MEDS: HYDROCODONE/ACETAMINOPHEN 5/325MG TABLET PO PRN ×3 (09:10→22:56)
[2022-04-02] MEDS: SILVER SULFADIAZINE 1% CREAM 25GM TOP SCH ×2 (09:21→21:43)
[2022-04-02] MEDS: ENOXAPARIN 40MG/0.4ML SYR SUBCUT SCH (16:11)
[2022-04-02 20:00] VITALS: BP 130/67
[2022-04-03] MEDS: HYDROCODONE/ACETAMINOPHEN 5/325MG TABLET PO PRN ×3 (04:22→21:04)
[2022-04-03] MEDS: LEVOTHYROXINE SODIUM 25MCG TABLET PO SCH (07:03)
[2022-04-03 07:05] LABS: BASOPHILS % 1.2 % (0.0-2.0); EOSINOPHILS % 1.2 % (0.0-5.0); HEMATOCRIT. 23.5 % (42.0-52.0); HEMOGLOBIN. 8.1 g/dL (14.0-18.0); LYMPHOCYTES % 15.6 % (20.0-50.0); MEAN CORPUSCULAR HEMOGLOBIN 34.5 pg (28.0-32.0); MEAN CORPUSCULAR VOLUME 99.9 fL (80.0-94.0); MEAN PLATELET VOLUME 7.6 fl (7.4-10.4); MONOCYTES % 9.2 % (2.0-8.0); NEUTROPHILS % 72.8 % (40.0-76.0); PLATELET 327 x1000/uL (130-400); RED BLOOD CELL COUNT 2.35 mill/uL (4.7-6.1); RED CELL DISTRIBUTION WIDTH 17.1 % (11.6-14.6)
[2022-04-03 07:10] LABS: CHLORIDE 102 mEq/L (98-107)
[2022-04-03 07:15] LABS: PHOSPHORUS 3.5 mg/dL (2.5-4.9)
[2022-04-03 08:00] VITALS: BP 121/64
[2022-04-03] MEDS: SILVER SULFADIAZINE 1% CREAM 25GM TOP SCH ×2 (09:00→21:00)
[2022-04-03] MEDS: POTASSIUM CHLORIDE 20MEQ TABLET SR PO SCH (09:30)
[2022-04-03] MEDS: THIAMINE HCL 100MG TABLET PO SCH (09:30)
[2022-04-03] MEDS: MIDODRINE HCL 5MG TABLET PO SCH ×3 (09:30→16:12)
[2022-04-03] MEDS: FOLIC ACID 1MG TABLET PO SCH (09:30)
[2022-04-03] MEDS: MAGNESIUM OXIDE 400MG TABLET PO SCH ×2 (09:30→16:12)
[2022-04-03] MEDS: ENOXAPARIN 40MG/0.4ML SYR SUBCUT SCH (14:00)
[2022-04-03 20:02] VITALS: BP 120/70
[2022-04-04] MEDS: LEVOTHYROXINE SODIUM 25MCG TABLET PO SCH (06:31)
[2022-04-04] MEDS: METHOCARBAMOL 500MG TABLET PO PRN ×2 (06:34→19:48)
[2022-04-04] MEDS: HYDROCODONE/ACETAMINOPHEN 5/325MG TABLET PO PRN ×3 (06:34→19:48)
[2022-04-04 08:00] VITALS: BP 120/70
[2022-04-04] MEDS: THIAMINE HCL 100MG TABLET PO SCH (10:08)
[2022-04-04] MEDS: MAGNESIUM OXIDE 400MG TABLET PO SCH ×2 (10:08→18:39)
[2022-04-04] MEDS: FOLIC ACID 1MG TABLET PO SCH (10:08)
[2022-04-04] MEDS: POTASSIUM CHLORIDE 20MEQ TABLET SR PO SCH (10:08)
[2022-04-04] MEDS: SILVER SULFADIAZINE 1% CREAM 25GM TOP SCH ×2 (10:10→20:51)
[2022-04-04] MEDS: MIDODRINE HCL 5MG TABLET PO SCH ×3 (10:10→18:39)
[2022-04-04 12:18] LABS: BASOPHILS % 1.1 % (0.0-2.0); EOSINOPHILS % 1.5 % (0.0-5.0); HEMATOCRIT. 25.6 % (42.0-52.0); HEMOGLOBIN. 8.6 g/dL (14.0-18.0); LYMPHOCYTES % 14.4 % (20.0-50.0); MEAN CORPUSCULAR HEMOGLOBIN 33.6 pg (28.0-32.0); MEAN CORPUSCULAR VOLUME 100.4 fL (80.0-94.0); MEAN PLATELET VOLUME 7.2 fl (7.4-10.4); MONOCYTES % 10.3 % (2.0-8.0); NEUTROPHILS % 72.7 % (40.0-76.0); PLATELET 368 x1000/uL (130-400); RED BLOOD CELL COUNT 2.55 mill/uL (4.7-6.1); RED CELL DISTRIBUTION WIDTH 16.8 % (11.6-14.6)
[2022-04-04 12:28] LABS: CHLORIDE 99 mEq/L (98-107)
[2022-04-04] MEDS: ENOXAPARIN 40MG/0.4ML SYR SUBCUT SCH (15:23)
[2022-04-04] MEDS ORDERED: NALOXONE HCL 0.4MG/ML VIAL IV PRN (16:00)
[2022-04-04] MEDS: ACETAMINOPHEN 325MG TABLET PO PRN (18:40)
[2022-04-04 20:00] VITALS: BP 116/54
[2022-04-05] MEDS: HYDROCODONE/ACETAMINOPHEN 5/325MG TABLET PO PRN ×4 (03:11→21:08)
[2022-04-05 06:35] LABS: BASOPHILS % 1.9 % (0.0-2.0); EOSINOPHILS % 1.6 % (0.0-5.0); HEMATOCRIT. 25.3 % (42.0-52.0); HEMOGLOBIN. 8.5 g/dL (14.0-18.0); LYMPHOCYTES % 15.5 % (20.0-50.0); MEAN CORPUSCULAR HEMOGLOBIN 33.7 pg (28.0-32.0); MEAN PLATELET VOLUME 7.5 fl (7.4-10.4); MONOCYTES % 10.2 % (2.0-8.0); NEUTROPHILS % 70.8 % (40.0-76.0); PLATELET 373 x1000/uL (130-400); RED BLOOD CELL COUNT 2.53 mill/uL (4.7-6.1)
[2022-04-05] MEDS: LEVOTHYROXINE SODIUM 25MCG TABLET PO SCH (07:00)
[2022-04-05 07:46] LABS: CHLORIDE 100 mEq/L (98-107)
[2022-04-05 08:00] VITALS: BP_SYST 114; BP_SYST 134; BP_DIAS 64; BP_DIAS 75
[2022-04-05] MEDS: MAGNESIUM OXIDE 400MG TABLET PO SCH ×2 (08:45→16:19)
[2022-04-05] MEDS: THIAMINE HCL 100MG TABLET PO SCH (08:46)
[2022-04-05] MEDS: FOLIC ACID 1MG TABLET PO SCH (08:46)
[2022-04-05] MEDS: MIDODRINE HCL 5MG TABLET PO SCH ×3 (08:47→18:06)
[2022-04-05] MEDS: POTASSIUM CHLORIDE 20MEQ TABLET SR PO SCH (08:50)
[2022-04-05] MEDS: SILVER SULFADIAZINE 1% CREAM 25GM TOP SCH ×2 (08:51→21:00)
[2022-04-05] MEDS: ENOXAPARIN 40MG/0.4ML SYR SUBCUT SCH (16:15)
[2022-04-05 20:00] VITALS: BP 137/69
[2022-04-06] MEDS: HYDROCODONE/ACETAMINOPHEN 5/325MG TABLET PO PRN (03:55)
[2022-04-06] MEDS: LEVOTHYROXINE SODIUM 25MCG TABLET PO SCH (07:49)
[2022-04-06 08:00] VITALS: BP 121/63
[2022-04-06] MEDS: THIAMINE HCL 100MG TABLET PO SCH (09:59)
[2022-04-06] MEDS: MIDODRINE HCL 5MG TABLET PO SCH ×3 (10:00→17:17)
[2022-04-06] MEDS: POTASSIUM CHLORIDE 20MEQ TABLET SR PO SCH (10:00)
[2022-04-06] MEDS: METHOCARBAMOL 500MG TABLET PO PRN (10:00)
[2022-04-06] MEDS: FOLIC ACID 1MG TABLET PO SCH (10:00)
[2022-04-06] MEDS: MAGNESIUM OXIDE 400MG TABLET PO SCH ×2 (10:02→17:17)
[2022-04-06] MEDS: SILVER SULFADIAZINE 1% CREAM 25GM TOP SCH ×2 (10:02→20:54)
[2022-04-06] MEDS ORDERED: BISACODYL 5MG TABLET PO PRN (14:30)
[2022-04-06] MEDS ORDERED: LACTULOSE 20G/30ML UDC PO NR (14:30)
[2022-04-06] MEDS: ENOXAPARIN 40MG/0.4ML SYR SUBCUT SCH (15:07)
[2022-04-06 20:24] VITALS: BP 113/58
[2022-04-07] MEDS ORDERED: LACTULOSE 20G/30ML UDC PO PRN
[2022-04-07] MEDS: LEVOTHYROXINE SODIUM 25MCG TABLET PO SCH (05:29)
[2022-04-07] MEDS: HYDROCODONE/ACETAMINOPHEN 5/325MG TABLET PO PRN ×2 (05:29→09:24)
[2022-04-07 08:00] VITALS: BP 95/54
[2022-04-07] MEDS: SILVER SULFADIAZINE 1% CREAM 25GM TOP SCH ×2 (09:00→21:00)
[2022-04-07] MEDS: MAGNESIUM OXIDE 400MG TABLET PO SCH ×2 (09:22→17:49)
[2022-04-07] MEDS: THIAMINE HCL 100MG TABLET PO SCH (09:22)
[2022-04-07] MEDS: FOLIC ACID 1MG TABLET PO SCH (09:22)
[2022-04-07] MEDS: MIDODRINE HCL 5MG TABLET PO SCH ×3 (09:23→17:49)
[2022-04-07] MEDS: POTASSIUM CHLORIDE 20MEQ TABLET SR PO SCH (09:23)
[2022-04-07] MEDS: ENOXAPARIN 40MG/0.4ML SYR SUBCUT SCH (16:10)
[2022-04-07] MEDS: ACETAMINOPHEN 325MG TABLET PO PRN (17:49)
[2022-04-07 20:02] VITALS: BP 123/55
[2022-04-08] MEDS: ACETAMINOPHEN 325MG TABLET PO PRN ×2 (06:27→13:42)
[2022-04-08] MEDS: LEVOTHYROXINE SODIUM 25MCG TABLET PO SCH (06:27)
[2022-04-08 08:00] VITALS: BP 108/63
[2022-04-08] MEDS: FOLIC ACID 1MG TABLET PO SCH (10:21)
[2022-04-08] MEDS: POTASSIUM CHLORIDE 20MEQ TABLET SR PO SCH (10:21)
[2022-04-08] MEDS: MAGNESIUM OXIDE 400MG TABLET PO SCH (10:21)
[2022-04-08] MEDS: THIAMINE HCL 100MG TABLET PO SCH (10:21)
[2022-04-08] MEDS: MIDODRINE HCL 5MG TABLET PO SCH ×2 (10:21→13:34)
[2022-04-08] MEDS: SILVER SULFADIAZINE 1% CREAM 25GM TOP SCH (10:22)
[2022-04-08 12:48] VITALS: BP 108/63
[2022-04-08] MEDS: METHOCARBAMOL 500MG TABLET PO PRN (13:42)
== END 2022-04-08 14:50 | DRG 70 ==
PROVIDERS: ADMIT Physical Medicine & Rehabilitation Spinal Cord Injury Medicine; ATTEND Internal Medicine
DX: G93.41 Metabolic encephalopathy (principal); A41.9 Sepsis, unspecified organism; E43 Unspecified severe protein-calorie malnutrition; G82.50 Quadriplegia, unspecified; I21.4 Non-ST elevation (NSTEMI) myocardial infarction; R65.21 Severe sepsis with septic shock; E87.2 Acidosis; M62.82 Rhabdomyolysis; N17.9 Acute kidney failure, unspecified; M47.12 Other spondylosis with myelopathy, cervical region; N39.0 Urinary tract infection, site not specified; D64.9 Anemia, unspecified; E87.6 Hypokalemia; I10 Essential (primary) hypertension; K76.0 Fatty (change of) liver, not elsewhere classified; K82.8 Other specified diseases of gallbladder; M48.02 Spinal stenosis, cervical region; M48.061 Spinal stenosis, lumbar region without neurogenic claudication; Z82.49 Family history of ischemic heart disease and other diseases of the circulatory system; N40.0 Benign prostatic hyperplasia without lower urinary tract symptoms; N20.0 Calculus of kidney; R53.81 Other malaise; L98.499 Non-pressure chronic ulcer of skin of other sites with unspecified severity; B95.2 Enterococcus as the cause of diseases classified elsewhere; F10.10 Alcohol abuse, uncomplicated; E83.42 Hypomagnesemia; G20 Parkinson's disease; S90.32XA Contusion of left foot, initial encounter; S91.312A Laceration without foreign body, left foot, initial encounter; Z59.00 Homelessness unspecified
CPT/HCPCS: 36415; 80048; 80053; 82306; 82550; 82607; 82728; 82746; 83540; 83550; 83605; 83735; 84100; 84134; 84145; 84153; 84443; 85025; 87426; 92523; 93970; 93971; 97110; 97116; 97162; 97166; 97530; 97535; 97542; J1650; J2543; J3475; J3490; J7060; A4315; G0103

== ENCOUNTER 2022-06-09 21:24 | Emergency (ER) | payer MEDICARE, MEDICAID ==
[~2022-06-09] VITALS: Ht 188 cm; Wt 64.0 kg
[2022-06-09 23:06] LABS: BASOPHILS % 0.9 % (0.0-2.0); EOSINOPHILS % 2.7 % (0.0-5.0); HEMATOCRIT. 29.2 % (42.0-52.0); HEMOGLOBIN. 9.8 g/dL (14.0-18.0); LYMPHOCYTES % 21.5 % (20.0-50.0); MEAN CORPUSCULAR HEMOGLOBIN 30.2 pg (28.0-32.0); MEAN CORPUSCULAR VOLUME 90.1 fL (80.0-94.0); MEAN PLATELET VOLUME 7.1 fl (7.4-10.4); MONOCYTES % 8.9 % (2.0-8.0); PLATELET 331 x1000/uL (130-400); RED BLOOD CELL COUNT 3.24 mill/uL (4.7-6.1); RED CELL DISTRIBUTION WIDTH 15.8 % (11.6-14.6)
[2022-06-09 23:14] LABS: CHLORIDE 107 mEq/L (98-107)
[2022-06-09] MEDS ORDERED: HYDROCODONE/ACETAMINOPHEN 5/325MG TABLET PO ONE (23:45)
[2022-06-10 00:21] LABS: CLARITY URINE CLEAR (CLEAR); COLOR URINE YELLOW (YELLOW); KETONES URINE TRACE (NEGATIVE); LEUKOCYTE ESTERASE URINE 2+ (NEGATIVE); NITRITE URINE NEGATIVE (NEGATIVE); OCCULT BLOOD URINE NEGATIVE (NEGATIVE); PH URINE 5.5 (4.5-8.0); PROTEIN URINE TRACE (NEGATIVE); SPECIFIC GRAVITY URINE 1.019 (1.005-1.030); UROBILINOGEN URINE 0.2 E.U./dL (0.2-1.0)
[2022-06-10 06:42] VITALS: BP 107/53
== END 2022-06-10 09:13 | disposition home or self-care (01) ==
LOC: ER 21:24
DX: M79.10 Myalgia, unspecified site (principal); Z46.6 Encounter for fitting and adjustment of urinary device; F41.9 Anxiety disorder, unspecified; F03.90 Unspecified dementia, unspecified severity, without behavioral disturbance, psychotic disturbance, mood disturbance, and anxiety; M19.90 Unspecified osteoarthritis, unspecified site; N18.9 Chronic kidney disease, unspecified; I12.9 Hypertensive chronic kidney disease with stage 1 through stage 4 chronic kidney disease, or unspecified chronic kidney disease; Z87.440 Personal history of urinary (tract) infections
CPT/HCPCS: 36415; 51702; 80053; 81003; 85025; 99284

== ENCOUNTER 2022-10-19 05:08 | Emergency (ER) | payer MEDICARE, MEDICAID ==
[~2022-10-19] VITALS: Ht 182.9 cm; Wt 68.0 kg
[2022-10-19 07:51] VITALS: BP 133/84
== END 2022-10-19 08:26 ==
LOC: ER 05:08
DX: R33.9 Retention of urine, unspecified (principal); I10 Essential (primary) hypertension
CPT/HCPCS: 51702; 99284; A4315